=== PATIENT | male | born 1950 | race Caucasian/White ===

== ENCOUNTER → 2023-08-12 09:34 | Outpatient (REF) | payer MEDICARE, OTHER, SELFPAY | LOC: RAD 09:34 | PROVIDERS: ATTENDING PHYSICIAN Internal Medicine Medical Oncology; FAMILY PHYSICIAN Family Medicine | DX: C61 Malignant neoplasm of prostate (principal) | CPT/HCPCS: 78306; A9503 ==

== ENCOUNTER → 2023-09-22 13:59 | Outpatient (REF) | payer MEDICARE, OTHER, SELFPAY | LOC: RCS 13:59 | PROVIDERS: ATTENDING PHYSICIAN Internal Medicine Cardiovascular Disease; FAMILY PHYSICIAN Family Medicine | DX: I44.1 Atrioventricular block, second degree (principal); I34.1 Nonrheumatic mitral (valve) prolapse; I45.2 Bifascicular block; I27.20 Pulmonary hypertension, unspecified | CPT/HCPCS: 93306 ==

== ENCOUNTER → 2023-10-21 13:06 | Outpatient (REF) | payer MEDICARE, OTHER, SELFPAY | LOC: HWRAD 13:06 | PROVIDERS: ATTENDING PHYSICIAN Family Medicine | DX: R05.1 Acute cough (principal) | CPT/HCPCS: 71046 ==

== ENCOUNTER → 2024-11-16 15:43 | Outpatient (REF) | payer MEDICARE, OTHER, SELFPAY | LOC: RCS 15:43 | PROVIDERS: ATTENDING PHYSICIAN Internal Medicine Cardiovascular Disease; FAMILY PHYSICIAN Physician Assistant; REFERRING PHYSICIAN Family Medicine | DX: I50.32 Chronic diastolic (congestive) heart failure (principal) | CPT/HCPCS: 93306 ==

== ENCOUNTER 2024-12-20 06:25 | Day surgery (SDC) | payer MEDICARE, OTHER, SELFPAY | END 2024-12-20 11:40 | disposition home or self-care (01) | LOC: GI 06:25 | PROVIDERS: ATTENDING PHYSICIAN Specialist | DX: K22.70 Barrett's esophagus without dysplasia (principal); K29.70 Gastritis, unspecified, without bleeding; K31.89 Other diseases of stomach and duodenum; Z13.810 Encounter for screening for upper gastrointestinal disorder | CPT/HCPCS: 43239; 88305; 88342 ==

== ENCOUNTER 2025-03-17 17:28 | Emergency (ER) | payer MEDICARE, OTHER, SELFPAY ==
[2025-03-17 17:30] VITALS: BP 144/97
[2025-03-17 18:21] VITALS: BP 121/60
[2025-03-17 18:25] VITALS: BMI 26.7
--- NOTE | 2025-03-17 18:25 | ED.GENMED ---
History of Present Illness
General
Chief Complaint: Breathing Problem
Source: patient and spouse
Exam Limitations: none
Time Seen by Provider: 03/17/25 17:46
Nursing documentation reviewed up to this point in time: agreed with
History of Present Illness
History of Present Illness:
Note:
CHIEF COMPLAINT(S)
Fatigue, dyspnea on exertion, cough.
HISTORY OF PRESENT ILLNESS
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 He reports recent exacerbation of symptoms following chemotherapy with carboplatin. Approximately 16 months
ago, he experienced symptoms resembling an asthma attack but was diagnosed with congestive heart failure. He notes he has had pneumonia and congestive heart failure as complications. After his most recent chemotherapy session two weeks ago, he
reports feeling significantly more fatigued and exhibiting symptoms of exhaustion, persistent sleepiness, and a productive cough with sputum. These symptoms began within the last two weeks. He underwent a blood transfusion at [facility] due to low
hemoglobin levels of 6.5 g/dL, receiving one unit on a Wednesday and two units on the following , resulting in an increase to 7.7 g/dL. Despite this, his condition has not improved, and he finds himself short of breath when climbing stairs,
necessitating support to rest. The patient expresses concern about the potential reoccurrence of congestive heart failure or respiratory infection. He was advised by his treatment center to undergo a chest X-ray. No fevers have been reported.
ADDITIONAL HISTORY OBTAINED FROM SOURCES OTHER THAN THE PATIENT
The patients spouse confirmed the above history and timeline of symptoms and treatments.
SOCIAL DETERMINANTS AFFECTING HEALTH
Per the patient and his spouse, there is no mention of social determinants affecting current health conditions, such as financial, housing, or transportation issues at this time.
PHYSICAL EXAM
General: Alert, no acute distress.
Skin: Warm, dry.
Head: Normocephalic, atraumatic.
Neck: Supple, trachea midline.
Eye, Ears, Nose, Mouth, and Throat: Oral mucosa moist.
Cardiovascular: Normal peripheral perfusion, no edema.
Respiratory: Non-labored breathing; decreased breath sounds noted at the lung bases.
Gastrointestinal: Abdomen nondistended.
Back: Normal range of motion, normal alignment.
Musculoskeletal: Normal range of motion, normal strength.
Neurological: Alert and oriented to person, place, time, and situation, no focal neurological deficit observed.
Psychiatric: Cooperative, appropriate mood & affect.
PLAN
- Perform chest X-ray to assess for possible pneumonia or fluid accumulation.
- Review blood counts and kidney function.
- Administer a breathing treatment with a combination of albuterol and ipratropium to evaluate the impact on respiratory symptoms.
- Evaluate for potential heart failure exacerbation by monitoring response to treatment.
- Establish intravenous access for potential medication administration or further transfusions as needed.
DIFFERENTIAL DIAGNOSIS
The Differential Diagnosis includes, in no particular order and is not limited to:
1. Anemia due to recent chemotherapy
2. Congestive heart failure exacerbation
3. Pneumonia
4. Chronic obstructive pulmonary disease
5. Asthma
6. Bronchitis
7. Lung metastases
8. Fatigue secondary to chemotherapy
9. Respiratory infection
10. Pulmonary edema
CARE-UPDATE
03/17/25 - 20:41
Patient reports some improvement following Duoneb treatment. Chest X-ray results return negative. No acute lab findings noted. Patient has a history of chronic hyponatremia, as reported. Plan in place for follow-up care with [facility]. Condition
stable for discharge.
EKG
My independent EKG interpretation is:
- Rhythm: Sinus rhythm with frequent PVCs
- [place]: Left axis deviation
- Abnormalities: Right bundle branch block
- Abnormalities: Left anterior fascicular block
Disposition:
SUMMARY OF ENCOUNTER
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 His symptoms worsened
following chemotherapy with carboplatin, and he underwent recent blood transfusions for low hemoglobin levels. During his visit, the assessment focused on potential respiratory infection, heart failure exacerbation, or other complications related to
his medical history. A chest X-ray was reviewed, and no acute findings such as congestive heart failure or pneumonia were indicated.
DISPOSITION
Discharge.
ASSESSMENT
Acute bronchitis, chronic hyponatremia. No signs of congestive heart failure or pneumonia.
EMERGENCY TREATMENTS ADMINISTERED
Albuterol and ipratropium (Duoneb) breathing treatment.
REASSESSMENT
Patient reported improvement following Duoneb treatment. Vitals were stable, and there were no signs of congestive heart failure or pneumonia.
PLAN
Patient to follow up with his care team at [facility]. No antibiotics were indicated.
INDEPENDENT REVIEW OF LABS AND INTERPRETATION OF TESTS
My independent interpretation of the chest X-ray returned negative for pneumonia or congestive heart failure.
PATIENT EDUCATION AND COUNSELING
Patient was informed about the lack of indicators for congestive heart failure or pneumonia and the current management plan involving supportive care and follow-up.
FOLLOW-UP INSTRUCTIONS
The patient is advised to follow up with [facility] for further evaluation and continued management of his underlying conditions.
MEDICAL DECISION MAKING
- Number and Complexity of Problems Addressed: Chronic conditions affecting care [adenocarcinoma, small cell prostate cancer, metastases to the liver, anemia, chronic hyponatremia]. Differential diagnoses considered were anemia due to recent
chemotherapy, congestive heart failure exacerbation, pneumonia, chronic obstructive pulmonary disease, asthma, bronchitis, lung metastases, fatigue secondary to chemotherapy, respiratory infection, and pulmonary edema.
- Data:
Category 1
- Clinical information was obtained from an independent historian: The patients spouse confirmed the history and timeline of symptoms and treatments.
Category 2
- My independent interpretation of chest X-ray returned negative.
- Risk: Consideration of Admission/Observation: Escalation of care including admission/observation was considered given the complexity and risk of the patients presenting complaint, exam findings, and their underlying comorbidities. However,
ultimately the patient was deemed safe for outpatient management with close follow-up due to reassuring work-up, lack of acute life-threatening findings, controlled symptoms upon reevaluation, stable vitals, and patients reliability for follow-up.
DIAGNOSIS
- Acute bronchitis (J20.9)
- Chronic hyponatremia (E87.1)
Past History
Past History
ED Past Medical History: HTN and Hypercholesterolemia
ED Past Surgical History: Orthopedic and Other (Hernia, skin cancer, sinus)
Social History
Tobacco: Former smoker (Quit over 30 years ago, smoked on and off for 10 years up to a pack a day)
Alcohol: Occasional
Drug: None
Personal:
Living: with family
Employment: Retired
Phy Exam
Physical Exam
Physical Exam:
.
Scores
Heart Failure Risk
Heart Failure Risk Score: Not Applicable
Course
Orders/Labs/Results
Orders:
Orders
03/17/25 17:51
Cardiac Monitoring- Treatment ONCE
Pulse Ox/cont/shift [RESP] Stat
Quantity: 1
03/17/25 17:52
Electrocardiogram (*1) Stat
Reason for Study: Other
Other Reason for Exam: pneumonia
EKG- Treatment ONCE
CR Chest - 2 Views Urgent
Comment:
Reason For Exam: short of breath
03/17/25 18:10
Complete Blood Count/With Diff Urgent
Comprehensive Metabolic Panel Urgent
NT-proBNP Urgent
Troponin I Urgent
03/17/25 18:22
Ipratropium/Albuterol Sulfate [Duoneb] 3 ml INH R NOW STA
Abnormal Lab Results
03/17/25
18:10
WBC 4.4 L 10^3/uL
(4.8-10.8)
RBC 3.16 L 10^6/uL
(4.70-6.10)
Hgb 9.8 L g/dL
(13.0-18.0)
Hct 30.2 L %
(39.0-52.0)
MCV 95.6 H fL
(80.0-94.0)
MCHC 32.5 L g/dL
(33.0-37.0)
RDW 18.5 H %
(11.5-14.5)
Plt Count 116 L 10^3/uL
(130-400)
MPV 10.5 H fL
(7.4-10.4)
Abs Immat Gran (auto) 0.2 H 10^3/uL
(0-0.05)
Absolute Lymphs (auto) 0.8 L 10^3/uL
(1.2-3.4)
Immature Gran % 3.9 H %
(0-0.5)
Lymphocytes % 17.4 L %
(20.5-51.1)
Monocytes % 13.3 H %
(1.7-9.3)
Sodium 127 L mmol/L
(135-145)
Chloride 94 L mmol/L
(98-107)
BUN 27 H mg/dl
(9-20)
Glucose 134 H mg/dl
(70-99)
Alkaline Phosphatase 232 H U/L
(38-126)
03/17/25 18:10
03/17/25 18:10
Vital Signs
Initial and Last Documented VS:
Initial Vital Signs
Temp Pulse Resp BP Pulse Ox
98.2 F 76 16 144/97 100
03/17/25 17:30 03/17/25 17:30 03/17/25 17:30 03/17/25 17:30 03/17/25 17:30
Last Documented Vital Signs
Temp Pulse Resp BP Pulse Ox
97.7 F 64 14 137/62 99
03/17/25 20:47 03/17/25 20:47 03/17/25 20:47 03/17/25 20:47 03/17/25 20:47
*Pulse Oximetry
SaO2: 100
Oxygen Mode of Delivery: Room air
Patient hypoxic: no
*Critical Care Note
Total Time (30-74mins, 75-104mins- exclusive of procedures): Not Applicable
ED Attending Note
-
Portions of this chart may have been created with voice recognition software.� Occasional wrong word or��sound alike� substitutions may have occurred due to the inherent limitations of voice recognition software.
Discharge Plan
Departure
Patient Disposition: Home (Routine Discharge)
Date of Disposition: 03/17/25
Time of Disposition: 20:39
Patient with high blood pressure during this ER visit?: Yes
Condition: Good
Discharge Problem:
Acute bronchitis, Chronic hyponatremia
Instructions: Acute Bronchitis, Adult (DC), BLOOD PRESSURE
Prescriptions:
No Action
valsartan 80 MG tablet
160 mg PO BID
amlodipine 5 MG tablet
5 mg PO BID
pravastatin 20 MG tablet
40 mg PO DAILY
ezetimibe 10 MG tablet
10 mg PO DAILY
omeprazole magnesium [Prilosec OTC] 20 MG tablet,delayed release (DR/EC)
20 mg PO DAILY
acetaminophen 325 MG tablet
650 mg PO Q4HPRN PRN (Reason: mild pain) Qty: 1 0RF
vitamin Q78-ghbrb acid 500-400 mcg Tablet
1 tab PO DAILY
Rx Instructions:
administer with a meal
cholecalciferol (vitamin D3) 100 mcg (4,000 unit) Capsule
100 mcg PO DAILY
Referrals:
Bc Negron PA [Family Provider, Family Practice]
Interventions
Interventions:
*Risk Screen - Suicide Last Done: 03/17/25 20:00
*General Assessment Last Done: 03/17/25 18:29
*Neglect/Abuse Screening Last Done: 03/17/25 18:29
*ED- Fall Risk Assessment Last Done: 03/17/25 18:29
*ED COVID-19 Vaccine History Last Done: 03/17/25 18:29
*ED Influenza Vaccine History Last Done: 03/17/25 18:29
*Nursing Disposition Last Done: 03/17/25 20:47
ED- Cardiac Assessment Last Done: 03/17/25 19:59
ED- Pulmonary Assessment Last Done: 03/17/25 19:59
Discharge Date and Time
Discharge Date/Time: 03/17/25 20:49
Print Language: IRISH
[2025-03-17] MEDS: DUONEB 3 ML INH (18:33)
[2025-03-17 18:38] LABS: Hematocrit 30.2 % (39.0-52.0); Hemoglobin 9.8 g/dL (13.0-18.0); Mean Corp Hgb Conc. 32.5 g/dL (33.0-37.0); Mean Corpuscular Volume 95.6 fL (80.0-94.0); Nucleated Red Blood Cells % 0 % (-); Platelet Count 116 10^3/uL (130-400); Red Cell Dist. Width 18.5 % (11.5-14.5)
[2025-03-17 18:44] LABS: ALT (SGPT) 29 U/L (0-50); AST (SGOT) 39 U/L (17-59); Albumin 4.1 g/dl (3.5-5.0); Alkaline Phosphatase 232 U/L (38-126); Blood Urea Nitrogen 27 mg/dl (9-20); Calcium 8.6 mg/dl (8.4-10.2); Carbon Dioxide 28 mmol/L (22-30); Chloride 94 mmol/L (98-107); Estimated Creatinine Clearance 55 ml/min; Glucose 134 mg/dl (70-99); Potassium 4.6 mmol/L (3.5-5.1); Sodium 127 mmol/L (135-145); Total Protein 6.4 g/dl (6.3-8.2); eGFR 57.65
[2025-03-17 18:50] LABS: Troponin I < 0.012 ng/ml
[2025-03-17 19:00] VITALS: BP 121/64
[2025-03-17 20:00] VITALS: BP 137/62
[2025-03-17 20:47] VITALS: BP 137/62
== END 2025-03-17 20:49 | disposition home or self-care (01) ==
LOC: EMR 17:28
PROVIDERS: EMERGENCY PHYSICIAN Emergency Medicine; FAMILY PHYSICIAN Physician Assistant
DX: J20.9 Acute bronchitis, unspecified (principal); E87.1 Hypo-osmolality and hyponatremia; I11.0 Hypertensive heart disease with heart failure; I50.9 Heart failure, unspecified; E78.00 Pure hypercholesterolemia, unspecified; Z87.891 Personal history of nicotine dependence; C61 Malignant neoplasm of prostate; C78.7 Secondary malignant neoplasm of liver and intrahepatic bile duct; Z85.828 Personal history of other malignant neoplasm of skin
CPT/HCPCS: 94640; 99285; 71046; 80053; 83880; 84484; 85025; 93005

== ENCOUNTER 2025-04-24 11:00 | Emergency (ER) | payer MEDICARE, OTHER, SELFPAY ==
[2025-04-24 11:01] VITALS: BP 85/42
--- NOTE | 2025-04-24 11:45 | ED.GENMED ---
History of Present Illness
General
Chief Complaint: Abnormal Lab Value
Source: patient
Time Seen by Provider: 04/24/25 11:22
History of Present Illness
History of Present Illness:
This patient is a 74-year-old male who is currently being treated for metastatic prostate cancer. He states that he felt his usual self until this morning when he tried to get out of bed and felt particularly weak. He denies focal weakness,
numbness, tingling, chest pain, abdominal pain, headache, dizziness, fever, chills, urinary symptoms. He does feel that his chronic lower extremity edema is slightly increased. He also has mild dyspnea. Patient states he called [facility] and was advised to go to the emergency department for platelet transfusion. I reviewed prior records, patient had a transfusion with his most recent level. He denies bleeding.
Past History
Past History
ED Past Medical History: HTN, Hypercholesterolemia and Other (Prostates CA with mets)
ED Past Surgical History: Orthopedic and Other (Hernia, skin cancer, sinus)
Social History
Tobacco: Former smoker (Quit over 30 years ago, smoked on and off for 10 years up to a pack a day)
Alcohol: Occasional
Drug: None
Personal:
Living: with family
Employment: Retired
Phy Exam
Physical Exam
Physical Exam:
GENERAL: Alert , in no apparent distress
EYE: pupils equal and reactive, no photophobia
NECK: Supple, no significant adenopathy.
ENT: o/p clr, mmm.
CARDIAC: Regular rate and rhythm .
LUNGS: Clear breath sounds bilaterally, no acute respiratory distress, no wheezes/rales/rhonchi
ABDOMEN: Soft, without focal tenderness, no r/g
NEUROLOGICAL: Alert and oriented, no focal neuro deficits
SKIN: Warm and dry, skin intact. Petechiae noted LE bilat, ecchymosis abd wall (resolving, pt states from prior injxs when most recently hospitalized)
MUSCULOSKELETAL: 1-2 + bilat le edema, well perfused.
PSYCH: Normal and appropriate interaction.
Course
Orders/Labs/Results
Orders:
Orders
04/24/25 12:19
Blood Group&Type Urgent
BBK Wristband Number:
Complete Blood Count/No Diff Urgent
Comprehensive Metabolic Panel Urgent
04/24/25 13:09
Type+Screen Urgent
BBK Wristband Number:
04/24/25 13:50
Prothrombin Complex(Pcc),Human [Kcentra] 4,355 unit Empty Viaflex Container 100 ml [Viaflex Empty Container] 0 ml IV NOW
Does patient have a dx of serious acute active bleeding?: No
Does patient have prior history of HIT?: No
Urgent surgery/invasive procedure planned in next 6 hours?: Yes
04/24/25 14:16
Protime/PTT Urgent
Abnormal Lab Results
04/24/25 04/24/25
12:19 14:16
WBC 4.7 L 10^3/uL
(4.8-10.8)
RBC 2.88 L 10^6/uL
(4.70-6.10)
Hgb 8.6 L g/dL
(13.0-18.0)
Hct 26.5 L %
(39.0-52.0)
MCHC 32.5 L g/dL
(33.0-37.0)
RDW 19.5 H %
(11.5-14.5)
Plt Count 59 L 10^3/uL
(130-400)
MPV 11.6 H fL
(7.4-10.4)
PT 15.1 H Sec
(11.4-14.6)
Sodium 131 L mmol/L
(135-145)
Potassium 5.3 H mmol/L
(3.5-5.1)
BUN 44 H mg/dl
(9-20)
Glucose 146 H mg/dl
(70-99)
Calcium 8.2 L mg/dl
(8.4-10.2)
AST 195 H U/L
(17-59)
ALT 74 H U/L
(0-50)
Alkaline Phosphatase 746 H U/L
(38-126)
Total Protein 6.1 L g/dl
(6.3-8.2)
04/24/25 12:19
04/24/25 12:19
Vital Signs
Initial and Last Documented VS:
Initial Vital Signs
Temp Pulse Resp BP Pulse Ox
98.1 F 77 20 85/42 96
04/24/25 11:01 04/24/25 11:01 04/24/25 11:01 04/24/25 11:01 04/24/25 11:01
Last Documented Vital Signs
Temp Pulse Resp BP Pulse Ox
98.6 F 74 13 101/55 98
04/24/25 12:02 04/24/25 14:45 04/24/25 14:45 04/24/25 13:00 04/24/25 14:45
*Pulse Oximetry
SaO2: 96
Oxygen Mode of Delivery: Room air
Update Note
Update Note:
Patient presents to the Emergency Department with
Number and Complexity of Problems Addressed at the Encounter
� Chronic conditions affecting care:
� Acute Exacerbation and/or Progression of Chronic Illness:
� Differential Diagnosis includes:
Amount and/or Complexity of Data to be Reviewed and Analyzed
� I performed an independent evaluation of and my interpretation is:
EKG:
CT:
Xrays:
Laboratory Studies:
Other:
� Review of other/old records reveals: reviewed labs as outpt (pt provided), on 04/18 (approx), Hgb 7.9 and platelets approx 84K.
� Clinical information was obtained by an independent historian:
� Prescriptions/Medications Considered but not given:
� Further testing considered but not performed:
Risk of Complications and/or Morbidity or Mortality of Patient Management
� Social determinants of health affecting care:
� Discussion with other providers (PCP, Hospitalists, Consultants, etc):
� Escalation of care including admission/observation vs risk of discharge considered:case d/w pt's onc physician Dr Jarvis, who is aware of hx, physical, labs, etc. Does nto recommen transfusion, states that pt at 'end' of his
cancer care options and may be candidat efor hospice soon, platelet count does not warrant tx. Recommend t/c 500 ml NS, d/c bp meds, d/c any antiplatelets, and d/c home.
ED Attending Note
-
Portions of this chart may have been created with voice recognition software.� Occasional wrong word or��sound alike� substitutions may have occurred due to the inherent limitations of voice recognition software.
Discharge Plan
Departure
Patient Disposition: Home (Routine Discharge)
Date of Disposition: 04/24/25
Time of Disposition: 15:01
Patient with high blood pressure during this ER visit?: No
Condition: Good
Discharge Problem:
Thrombocytopenia
Instructions: Platelet count
Prescriptions:
No Action
ezetimibe 10 MG tablet
10 mg PO QPM
sennosides [senna] 8.6 mg Tablet
34.4 mg PO DAILY
carvedilol 6.25 mg Tablet
6.25 mg PO BID
cyanocobalamin (vitamin B-12) 100 mcg Tablet
100 mcg PO DAILY
oxybutynin chloride 10 mg Tablet Extended Release 24hr
10 mg PO QPM
hydromorphone 8 mg Tablet
8 mg PO Q6H PRN (Reason: severe pain)
Rx Instructions:
script states 1-1.5 tabs every 4-6 hours - MKO
methylphenidate HCl 5 mg Tablet
5 mg PO TID
olanzapine 5 mg Tablet
5 mg PO DAILY
acetaminophen 500 mg Tablet
1,000 mg PO Q6H PRN (Reason: mild pain)
spironolactone 25 mg Tablet
12.5 mg PO DAILY
lidocaine-prilocaine 2.5-2.5 % Cream
1 applic TOPICAL DAILYPRN PRN (Reason: port access)
lorazepam 0.5 mg Tablet
0.5 mg PO BID
calcium carbonate [Calcium 500] 500 mg calcium (1,250 mg) Tablet
500 mg PO DAILY
tamsulosin 0.4 mg Capsule
0.8 mg PO QPM
dexamethasone 2 mg Tablet
2 mg PO DAILY
Rx Instructions:
start date 04/20/25 end date 04/24/25 MKO
omeprazole 20 mg Capsule,Delayed Release(Dr/Ec)
20 mg PO DAILY
aspirin 81 mg Tablet,Chewable
81 mg PO DAILY
furosemide 20 mg Tablet
20 mg PO DAILY
polyethylene glycol 3350 17 gram/dose Powder
17 g PO QPM
cholecalciferol (vitamin D3) [Vitamin D3] 25 mcg (1,000 unit) Capsule
25 mcg PO DAILY
escitalopram oxalate [Lexapro] 20 mg Tablet
20 mg PO DAILY
rosuvastatin 5 mg Tablet
5 mg PO DAILY
mirtazapine 7.5 mg Tablet
7.5 mg PO HS
fentanyl 62.5 mcg/hour Patch 72 Hour
1 patch TRANSDERMAL Q72H
Rx Instructions:
due to be removed 04/25/25 placed 04/22/25 MKO
Neulasta 6 mg/0.6 mL Syringe
6 mg SC [id number]
Eligard (3 month) 22.5 mg Syringe
22.5 mg SC [id number]
Referrals:
Prem,Everardo D., MD [Family Provider, Family Practice]
Activity Restrictions/Additional Instructions:
DISCONTINUE YOUR BLOOD PRESSURE MEDICATIONS. IF YOU ARE TAKING ASPIRIN, DISCONTINUE THIS. PLEASE FOLLOW UP WITH YOUR CANCER DOCTOR PROMPTLY. IF YOU DEVELOP DIZZINESS, CHEST PAIN, TROUBLE BREATHING, VOMITING, BLEEDING, OR OTHER WORRISOME SIGNS, GO
TO THE ER IMMEDIATELY!
Interventions
Interventions:
*General Assessment Last Done: 04/24/25 11:01
*Neglect/Abuse Screening Last Done: 04/24/25 11:01
*ED COVID-19 Vaccine History Last Done: 04/24/25 12:02
*ED Influenza Vaccine History Last Done: 04/24/25 12:02
[facility] Risk Assessment Tool Last Done: 04/24/25 12:02
*Risk Screen - Suicide (C-SSRS) Last Done: 04/24/25 12:02
Discharge Date and Time
Print Language: SOMALI
--- NOTE | 2025-04-24 12:00 | EDRN ---
IV team currently at the pts bedside
[2025-04-24 12:02] VITALS: BP 95/57; BMI 26.8
[2025-04-24 12:38] LABS: Hematocrit 26.5 % (39.0-52.0); Hemoglobin 8.6 g/dL (13.0-18.0); Mean Corp Hgb Conc. 32.5 g/dL (33.0-37.0); Mean Corpuscular Volume 92.0 fL (80.0-94.0); Red Cell Dist. Width 19.5 % (11.5-14.5)
[2025-04-24 12:46] LABS: ALT (SGPT) 74 U/L (0-50); AST (SGOT) 195 U/L (17-59); Albumin 3.7 g/dl (3.5-5.0); Alkaline Phosphatase 746 U/L (38-126); Blood Urea Nitrogen 44 mg/dl (9-20); Calcium 8.2 mg/dl (8.4-10.2); Carbon Dioxide 26 mmol/L (22-30); Chloride 98 mmol/L (98-107); Estimated Creatinine Clearance 53 ml/min; Glucose 146 mg/dl (70-99); Potassium 5.3 mmol/L (3.5-5.1); Sodium 131 mmol/L (135-145); Total Protein 6.1 g/dl (6.3-8.2); eGFR 57.65
[2025-04-24 12:49] VITALS: BP 102/53
--- NOTE | 2025-04-24 12:50 | PHANOTE ---
04/24/2025, could not confirm leuprolide and pegfilgrastim injections with another source.
[2025-04-24 13:00] VITALS: BP 101/55
[2025-04-24 13:23] LABS: Platelet Count 59 10^3/uL (130-400)
[2025-04-24 14:32] LABS: INR 1.17; PT 15.1 Sec (11.4-14.6)
[2025-04-24 14:33] LABS: APTT 27.0 Sec (23.4-35.0)
== END 2025-04-24 15:26 | disposition home or self-care (01) ==
LOC: EMR 11:00
PROVIDERS: EMERGENCY PHYSICIAN Emergency Medicine; FAMILY PHYSICIAN Family Medicine
DX: D69.6 Thrombocytopenia, unspecified (principal); C61 Malignant neoplasm of prostate; C79.9 Secondary malignant neoplasm of unspecified site; I10 Essential (primary) hypertension; E78.00 Pure hypercholesterolemia, unspecified; R60.0 Localized edema; Z87.891 Personal history of nicotine dependence; Z85.828 Personal history of other malignant neoplasm of skin
CPT/HCPCS: 99283; 80053; 85027; 85610; 85730; 86850; 86900; 86901; J7168

== ENCOUNTER 2025-04-27 15:22 | Emergency (ER) | payer MEDICARE, OTHER, SELFPAY ==
[2025-04-27] VITALS (10 sets, daily range): BP systolic 92–130; BP diastolic 42–56; BMI 26.5
[2025-04-27 16:51] LABS: Hematocrit 22.7 % (39.0-52.0); Hemoglobin 7.4 g/dL (13.0-18.0); Mean Corp Hgb Conc. 32.6 g/dL (33.0-37.0); Mean Corpuscular Volume 91.9 fL (80.0-94.0); Red Cell Dist. Width 19.2 % (11.5-14.5)
[2025-04-27 16:57] LABS: ALT (SGPT) 140 U/L (0-50); AST (SGOT) 270 U/L (17-59); Albumin 3.3 g/dl (3.5-5.0); Alkaline Phosphatase 736 U/L (38-126); Blood Urea Nitrogen 62 mg/dl (9-20); Calcium 7.9 mg/dl (8.4-10.2); Carbon Dioxide 24 mmol/L (22-30); Chloride 95 mmol/L (98-107); Glucose 127 mg/dl (70-99); Potassium 5.3 mmol/L (3.5-5.1); Sodium 124 mmol/L (135-145); Total Protein 5.5 g/dl (6.3-8.2); eGFR 41.78
[2025-04-27 17:08] LABS: Troponin I 0.026 ng/ml
[2025-04-27 17:17] LABS: Urine Character Clear (Clear)
[2025-04-27 17:36] LABS: Urine Squamous Cell 0-2 /LPF (Few)
[2025-04-27 17:38] LABS: Urine Red Blood Cell 0-2 /HPF (0-2); Urine White Cell 0-2 /HPF (0-5)
[2025-04-27 17:51] LABS: Platelet Count 47 10^3/uL (130-400)
[2025-04-27 17:52] LABS: Absolute Neutrophils -Man Diff 2.9 10^3/uL (1.4-6.5); Normal RBC Morphology Yes; Platelets Checked Yes; Total Cells Counted 100
--- NOTE | 2025-04-27 18:40 | ED.GENMED ---
History of Present Illness
General
Time Seen by Provider: 04/27/25 18:11
Past History
Past History
ED Past Medical History: HTN, Hypercholesterolemia and Other (Prostates CA with mets)
ED Past Surgical History: Orthopedic and Other (Hernia, skin cancer, sinus)
Social History
Tobacco: Former smoker (Quit over 30 years ago, smoked on and off for 10 years up to a pack a day)
Alcohol: Occasional
Drug: None
Personal:
Living: with family
Employment: Retired
Course
Orders/Labs/Results
Orders:
Orders
04/27/25 15:49
Electrocardiogram (*1) Urgent
Reason for Study: Shortness of Breath
04/27/25 15:50
EKG- Treatment ONCE
04/27/25 16:05
Complete Blood Count/With Diff Urgent
Comprehensive Metabolic Panel Urgent
Manual Differential Urgent
NT-proBNP Urgent
Troponin I Urgent
04/27/25 16:24
Urinalysis Reflex To Culture Urgent
Date Specimen was Collected: 04/27/25
Time Specimen was Collected: 15:50
Urine Microscopic Reflex Cult Urgent
Abnormal Lab Results
04/27/25 04/27/25
16:05 16:24
WBC 3.9 L 10^3/uL
(4.8-10.8)
RBC 2.47 L 10^6/uL
(4.70-6.10)
Hgb 7.4 L g/dL
(13.0-18.0)
Hct 22.7 L %
(39.0-52.0)
MCHC 32.6 L g/dL
(33.0-37.0)
RDW 19.2 H %
(11.5-14.5)
Plt Count 47 L D 10^3/uL
(130-400)
Band Neutrophils 6 H %
(0-3)
Lymphocytes (Manual) 7 L %
(20-51)
Sodium 124 L mmol/L
(135-145)
Potassium 5.3 H mmol/L
(3.5-5.1)
Chloride 95 L mmol/L
(98-107)
BUN 62 H mg/dl
(9-20)
Creatinine 1.7 H mg/dL
(0.7-1.3)
Glucose 127 H mg/dl
(70-99)
Calcium 7.9 L mg/dl
(8.4-10.2)
AST 270 H U/L
(17-59)
ALT 140 H U/L
(0-50)
Alkaline Phosphatase 736 H U/L
(38-126)
Total Protein 5.5 L g/dl
(6.3-8.2)
Albumin 3.3 L g/dl
(3.5-5.0)
Urine Albumin (Reflex) 2+ A
(Neg - Trace)
04/27/25 16:05
04/27/25 16:05
Vital Signs
Initial and Last Documented VS:
Initial Vital Signs
Temp Pulse Resp BP Pulse Ox
98.4 F 101 20 130/47 98
04/27/25 15:42 04/27/25 15:42 04/27/25 15:42 04/27/25 15:42 04/27/25 15:42
Last Documented Vital Signs
Temp Pulse Resp BP Pulse Ox
98.4 F 91 18 126/56 99
04/27/25 15:42 04/27/25 18:18 04/27/25 18:18 04/27/25 18:18 04/27/25 18:18
*Pulse Oximetry
SaO2: 99
Oxygen Mode of Delivery: Room air
ED Attending Note
-
Portions of this chart may have been created with voice recognition software.� Occasional wrong word or��sound alike� substitutions may have occurred due to the inherent limitations of voice recognition software.
Discharge Plan
Departure
Patient Disposition: Home (Routine Discharge)
Date of Disposition: 04/27/25
Time of Disposition: 18:40
Prescriptions:
No Action
ezetimibe 10 MG tablet
10 mg PO QPM
sennosides [senna] 8.6 mg Tablet
34.4 mg PO DAILY
carvedilol 6.25 mg Tablet
6.25 mg PO BID
cyanocobalamin (vitamin B-12) 100 mcg Tablet
100 mcg PO DAILY
oxybutynin chloride 10 mg Tablet Extended Release 24hr
10 mg PO QPM
hydromorphone 8 mg Tablet
8 mg PO Q6H PRN (Reason: severe pain)
Rx Instructions:
script states 1-1.5 tabs every 4-6 hours - MKO
methylphenidate HCl 5 mg Tablet
5 mg PO TID
olanzapine 5 mg Tablet
5 mg PO DAILY
acetaminophen 500 mg Tablet
1,000 mg PO Q6H PRN (Reason: mild pain)
spironolactone 25 mg Tablet
12.5 mg PO DAILY
lidocaine-prilocaine 2.5-2.5 % Cream
1 applic TOPICAL DAILYPRN PRN (Reason: port access)
lorazepam 0.5 mg Tablet
0.5 mg PO BID
calcium carbonate [Calcium 500] 500 mg calcium (1,250 mg) Tablet
500 mg PO DAILY
tamsulosin 0.4 mg Capsule
0.8 mg PO QPM
dexamethasone 2 mg Tablet
2 mg PO DAILY
Rx Instructions:
start date 04/20/25 end date 04/24/25 MKO
omeprazole 20 mg Capsule,Delayed Release(Dr/Ec)
20 mg PO DAILY
aspirin 81 mg Tablet,Chewable
81 mg PO DAILY
furosemide 20 mg Tablet
20 mg PO DAILY
polyethylene glycol 3350 17 gram/dose Powder
17 g PO QPM
cholecalciferol (vitamin D3) [Vitamin D3] 25 mcg (1,000 unit) Capsule
25 mcg PO DAILY
escitalopram oxalate [Lexapro] 20 mg Tablet
20 mg PO DAILY
rosuvastatin 5 mg Tablet
5 mg PO DAILY
mirtazapine 7.5 mg Tablet
7.5 mg PO HS
fentanyl 62.5 mcg/hour Patch 72 Hour
1 patch TRANSDERMAL Q72H
Rx Instructions:
due to be removed 04/25/25 placed 04/22/25 MKO
Neulasta 6 mg/0.6 mL Syringe
6 mg SC [id number]
Eligard (3 month) 22.5 mg Syringe
22.5 mg SC [id number]
Referrals:
Bc Negron PA [Family Provider, Family Practice]
Interventions
Interventions:
*General Assessment Last Done: 04/27/25 18:22
*Neglect/Abuse Screening Last Done: 04/27/25 15:42
*ED COVID-19 Vaccine History Last Done: 04/27/25 18:22
*ED Influenza Vaccine History Last Done: 04/27/25 18:22
[facility] Fall Risk Assessment Tool Last Done: 04/27/25 18:22
*Risk Screen - Suicide (C-SSRS) Last Done: 04/27/25 18:22
ED-Male Genitourinary Assessment Last Done: 04/27/25 18:23
Discharge Date and Time
Print Language: TELUGU
--- NOTE | 2025-04-27 18:42 | ED.GENMED ---
History of Present Illness
General
Chief Complaint: Male Genito-Urinary Symptoms
Time Seen by Provider: 04/27/25 18:11
History of Present Illness
History of Present Illness:
74-year-old male presents to the emergency department for evaluation of difficulty voiding. He has a history of metastatic prostate cancer and is no longer on chemotherapy as his oncology team at [facility] reportedly felt it to be futile. He notes
that he has been increasingly fatigued, was seen for this 3 days ago in this emergency department. He denies chest pain or shortness of breath. No nausea or vomiting. His family notes that his Lasix dosage has changed frequently over the past
month, approximately 1 week ago his Lasix was held for several days and was reinitiated today.
Past History
Past History
ED Past Medical History: HTN, Hypercholesterolemia and Other (Prostates CA with mets)
ED Past Surgical History: Orthopedic and Other (Hernia, skin cancer, sinus)
Social History
Tobacco: Former smoker (Quit over 30 years ago, smoked on and off for 10 years up to a pack a day)
Alcohol: Occasional
Drug: None
Personal:
Living: with family
Employment: Retired
Review of Systems
Review of Systems
Allergies reviewed?: Yes
All Other Systems: ROS reviewed and negative except as documented in HPI and ROS
Phy Exam
Physical Exam
Physical Exam:
GEN: Well appearing, NAD, WDWN
HEENT: Oral mucosa moist, no scleral icterus
Cardiac: Regular rate and rhythm, no murmur
Lung: No respiratory distress, no tachypnea, lungs clear to auscultation
MSK: No gross deformity or injuries, 3+ pitting edema bilateral extremities with nonblanching erythematous/petechial lesions circumferentially to the lower legs, right greater than left
Skin: Good color, no pallor or jaundice, no rashes
Neuro: AO x3, moves all extremities freely
Psych: Calm, cooperative
Course
Orders/Labs/Results
Orders:
Orders
04/27/25 15:49
Electrocardiogram (*1) Urgent
Reason for Study: Shortness of Breath
04/27/25 15:50
EKG- Treatment ONCE
04/27/25 16:05
Complete Blood Count/With Diff Urgent
Comprehensive Metabolic Panel Urgent
Manual Differential Urgent
NT-proBNP Urgent
Serum Osmolality Urgent
Comment: ADDON
Troponin I Urgent
04/27/25 16:24
Osmolality, Random Urine Urgent
Date Specimen was Collected: 04/27/25
Time Specimen was Collected: 15:50
Comment: ADDON
Urinalysis Reflex To Culture Urgent
Date Specimen was Collected: 04/27/25
Time Specimen was Collected: 15:50
Urine Microscopic Reflex Cult Urgent
Urine Sodium Urgent
Date Specimen was Collected: 04/27/25
Time Specimen was Collected: 15:50
Comment: ADDON
04/27/25 18:41
Add On- LAB Urgent
Tests Added?: serum osmolality, urine sodium, urine osm
04/27/25 19:59
Type+Screen Urgent
04/27/25 20:02
* Blood Bank Products Urgent
Blood Bank Products: *Packed RBC Leuko (PRBC's
Quantity: 1
Transfuse Today: Yes
Reason: Anemia
Furosemide [Lasix] 40 mg IV NOW STA
04/27/25 21:06
Acetaminophen [Tylenol] 1,000 mg .ROUTE .STK-MED ONE
04/27/25 21:09
Acetaminophen [Tylenol] 1,000 mg PO NOW STA
04/28/25 00:41
Heparin Pf [Heparin Lock Flush] 500 unit .ROUTE .STK-MED ONE
04/28/25 00:43
Heparin Pf [Heparin Lock Flush] 500 unit IV NOW ONE
Abnormal Lab Results
04/27/25 04/27/2504/27/25
16:05 16:24 19:59
WBC 3.9 L 10^3/uL
(4.8-10.8)
RBC 2.47 L 10^6/uL
(4.70-6.10)
Hgb 7.4 L g/dL
(13.0-18.0)
Hct 22.7 L %
(39.0-52.0)
MCHC 32.6 L g/dL
(33.0-37.0)
RDW 19.2 H %
(11.5-14.5)
Plt Count 47 L D 10^3/uL
(130-400)
Band Neutrophils 6 H %
(0-3)
Lymphocytes (Manual) 7 L %
(20-51)
Sodium 124 L mmol/L
(135-145)
Potassium 5.3 H mmol/L
(3.5-5.1)
Chloride 95 L mmol/L
(98-107)
BUN 62 H mg/dl
(9-20)
Creatinine 1.7 H mg/dL
(0.7-1.3)
Glucose 127 H mg/dl
(70-99)
Calcium 7.9 L mg/dl
(8.4-10.2)
AST 270 H U/L
(17-59)
ALT 140 H U/L
(0-50)
Alkaline Phosphatase 736 H U/L
(38-126)
Total Protein 5.5 L g/dl
(6.3-8.2)
Albumin 3.3 L g/dl
(3.5-5.0)
Urine Sodium 6 L mmol/L
(30-90)
Urine Albumin (Reflex) 2+ A
(Neg - Trace)
Crossmatch IS Only See Detail
04/27/25 16:05
04/27/25 16:05
Vital Signs
Initial and Last Documented VS:
Initial Vital Signs
Temp Pulse Resp BP Pulse Ox
98.4 F 101 20 130/47 98
04/27/25 15:42 04/27/25 15:42 04/27/25 15:42 04/27/25 15:42 04/27/25 15:42
Last Documented Vital Signs
Temp Pulse Resp BP Pulse Ox
98.4 F 90 16 124/51 97
04/28/25 00:27 04/28/25 00:34 04/28/25 00:34 04/28/25 00:34 04/28/25 00:30
MDM/Problems Addressed
MDM/Problems Addressed:
Initially had recommended to the patient we consider admission for more appropriate volume management given the hypervolemic hyponatremia in association with anemia requiring transfusion. After careful consideration and further discussion with
family the decision was made for the patient to be discharged after transfusion and diuresis. There is a consideration for hospice/comfort care going forward given his lack of potential benefit to any type of cancer treatments going forward. He
has numerous physician or nurse family members will be with him over the next several days to monitor his symptoms and consider return to the ER if he worsens. I suspect his hyponatremia will improve with diuresis. He is clinically stable with no
sign of respiratory compromise and no sign of cognitive dysfunction related to the low sodium. The lower extremity erythema/petechial lesions are likely due to thrombocytopenia in the setting of acute anemia, does not appear cellulitic, band
neutrophils noted on CBC however this may be a product of marrow involvement of his active cancer and not related to infectious process. Do not see indication for antibiotics at this time
*Pulse Oximetry
SaO2: 99
Oxygen Mode of Delivery: Room air
Patient hypoxic: no
*Critical Care Note
Total Time (30-74mins, 75-104mins- exclusive of procedures): Not Applicable
ED Attending Note
-
Portions of this chart may have been created with voice recognition software.� Occasional wrong word or��sound alike� substitutions may have occurred due to the inherent limitations of voice recognition software.
Discharge Plan
Departure
Patient Disposition: Home (Routine Discharge)
Date of Disposition: 04/28/25
Time of Disposition: 00:15
Patient with high blood pressure during this ER visit?: No
Discharge Problem:
Acute hyponatremia, Symptomatic anemia
Instructions: Hyponatremia
Prescriptions:
No Action
ezetimibe 10 MG tablet
10 mg PO QPM
sennosides [senna] 8.6 mg Tablet
34.4 mg PO DAILY
carvedilol 6.25 mg Tablet
6.25 mg PO BID
cyanocobalamin (vitamin B-12) 100 mcg Tablet
100 mcg PO DAILY
oxybutynin chloride 10 mg Tablet Extended Release 24hr
10 mg PO QPM
hydromorphone 8 mg Tablet
8 mg PO Q6H PRN (Reason: severe pain)
Rx Instructions:
script states 1-1.5 tabs every 4-6 hours - MKO
methylphenidate HCl 5 mg Tablet
5 mg PO TID
olanzapine 5 mg Tablet
5 mg PO DAILY
acetaminophen 500 mg Tablet
1,000 mg PO Q6H PRN (Reason: mild pain)
spironolactone 25 mg Tablet
12.5 mg PO DAILY
lidocaine-prilocaine 2.5-2.5 % Cream
1 applic TOPICAL DAILYPRN PRN (Reason: port access)
lorazepam 0.5 mg Tablet
0.5 mg PO BID
calcium carbonate [Calcium 500] 500 mg calcium (1,250 mg) Tablet
500 mg PO DAILY
tamsulosin 0.4 mg Capsule
0.8 mg PO QPM
dexamethasone 2 mg Tablet
2 mg PO DAILY
Rx Instructions:
start date 04/20/25 end date 04/24/25 MKO
omeprazole 20 mg Capsule,Delayed Release(Dr/Ec)
20 mg PO DAILY
aspirin 81 mg Tablet,Chewable
81 mg PO DAILY
furosemide 20 mg Tablet
20 mg PO DAILY
polyethylene glycol 3350 17 gram/dose Powder
17 g PO QPM
cholecalciferol (vitamin D3) [Vitamin D3] 25 mcg (1,000 unit) Capsule
25 mcg PO DAILY
escitalopram oxalate [Lexapro] 20 mg Tablet
20 mg PO DAILY
rosuvastatin 5 mg Tablet
5 mg PO DAILY
mirtazapine 7.5 mg Tablet
7.5 mg PO HS
fentanyl 62.5 mcg/hour Patch 72 Hour
1 patch TRANSDERMAL Q72H
Rx Instructions:
due to be removed 04/25/25 placed 04/22/25 MKO
Neulasta 6 mg/0.6 mL Syringe
6 mg SC [id number]
Eligard (3 month) 22.5 mg Syringe
22.5 mg SC [id number]
Referrals:
Bc Negron PA [Family Provider, Family Practice]
Activity Restrictions/Additional Instructions:
Have your sodium repeated tomorrow. Continue current dose of lasix and adjust accordingly based on repeat labs
Return to the ER if symptoms worsen
Interventions
Interventions:
*General Assessment Last Done: 04/27/25 18:22
*Neglect/Abuse Screening Last Done: 04/27/25 15:42
*ED COVID-19 Vaccine History Last Done: 04/27/25 18:22
*ED Influenza Vaccine History Last Done: 04/27/25 18:22
[facility] Risk Assessment Tool Last Done: 04/27/25 18:22
*Risk Screen - Suicide (C-SSRS) Last Done: 04/27/25 18:22
*Nursing Disposition Last Done: 04/28/25 00:52
ED-Male Genitourinary Assessment Last Done: 04/27/25 18:23
Discharge Date and Time
Print Language: THAI
[2025-04-27] MEDS: TYLENOL 1000 MG PO (21:10)
[2025-04-27] MEDS: LASIX 40 MG IV (21:12)
[2025-04-28] VITALS: BP 101/60
[2025-04-28 00:27] VITALS: BP 101/60
[2025-04-28 00:34] VITALS: BP 124/51
== END 2025-04-28 00:57 | disposition home or self-care (01) ==
LOC: EMR 15:22
PROVIDERS: Emergency Medicine; EMERGENCY PHYSICIAN Emergency Medicine; FAMILY PHYSICIAN Physician Assistant
DX: E87.1 Hypo-osmolality and hyponatremia (principal); D64.9 Anemia, unspecified; C61 Malignant neoplasm of prostate; C79.9 Secondary malignant neoplasm of unspecified site; I10 Essential (primary) hypertension; E78.00 Pure hypercholesterolemia, unspecified; Z92.21 Personal history of antineoplastic chemotherapy; Z87.891 Personal history of nicotine dependence; Z85.828 Personal history of other malignant neoplasm of skin
CPT/HCPCS: 99284; 96374; 96375; 36430; 80053; 81003; 81015; 83880; 83930; 83935; 84300; 84484; 85025; 86850; 86900; 86901; 86920; 93005; P9016